=== PATIENT | male | born 1980 | race Caucasian/White ===

== ENCOUNTER 2021-01-27 10:44 | Emergency (ER) | payer OTHER ==
[2021-01-27] MEDS ORDERED: Diphtheria,Pertussis(Acell),Tetanus Vaccine 0.5 ML Syringe IM ONE (11:16)
--- NOTE | 2021-01-27 12:00 | CR ---
Right hand: 4 views of the right hand were obtained. Comparison: No prior hand exam is available. Joint spaces are preserved. No fracture, dislocation or other bony abnormality is seen. Impression: 1. No bony abnormality is identified on right hand exam. Diagnostic code #1
[2021-01-27] MEDS ORDERED: Lidocaine 1% 10 ML MDV INJECT ONE (12:01)
[2021-01-27] MEDS ORDERED: Amoxicillin/Clavulanate K 875-125 MG Tab PO ONE (12:01)
--- NOTE | 2021-01-27 12:53 | EDM.PDOC ---
ED HPI GENERAL MEDICAL PROBLEM - General Chief Complaint: Laceration Stated Complaint: RT THUMB LAC Time Seen by Provider: 01/27/21 11:01 Source of Information: Reports: Patient, RN Notes Reviewed History Limitations: Reports: No Limitations - History of Present Illness INITIAL COMMENTS - FREE TEXT/NARRATIVE: Patient is a 40-year-old male presenting to the emergency department complains of lacerations to his right hand. Reports that he was working with a router when his hand hit the blade. He is unsure when his last tetanus vaccination was. Complains of numbness to the thumb and lateral aspect of his hand. He is unable to extend his thumb. Right Finger-Index Pain Score (Numeric/FACES): 4 - Related Data Allergies Allergy/AdvReac Type Severity Reaction Status Date / Time No Known Allergies Allergy Verified 01/27/21 13:07 Home Meds: Home Meds Amoxicillin/Potassium Clav [Augmentin 875-125 Tablet] 1 each PO BID 7 Days #13 tablet 01/27/21 [Rx] Past Medical History Musculoskeletal History: Reports: Other (See Below) Other Musculoskeletal History: collar bone and tricep issues ED ROS GENERAL - Review of Systems Review Of Systems: Comprehensive ROS is negative, except as noted in HPI. ED EXAM, SKIN/RASH Exam: See Below Exam Limited By: No Limitations General Appearance: Alert, WD/WN, No Apparent Distress, Anxious Respiratory/Chest: No Respiratory Distress, Lungs Clear, Normal Breath Sounds, No Accessory Muscle Use, Chest Non-Tender Cardiovascular: Normal Peripheral Pulses, Regular Rate, Rhythm, No Edema, No Gallop, No JVD, No Murmur, No Rub Extremities: Other (3 cm skin avulsion to the medial aspect of the right thumb. Involves a small sliver of the nail. Overlying, nonviable tissue is essentially shredded. Small amount of active bleeding. 5 cm gaping laceration to the medial aspect of the right hand. Small amount of active bleeding. ) Neurological: Alert, Oriented, Normal Gait, No Motor/Sensory Deficits Psychiatric: Normal Affect, Normal Mood, Anxious ED SKIN PROCEDURES - Laceration/Wound Repair Right Lateral Hand Appearance: Subcutaneous, Clean Distal NVT: Other (Visibly severed extensor tendon overlying the MCP joint) Anesthetic Type: Local Local Anesthesia - Lidocaine (Xylocaine): 1% Plain Local Anesthetic Volume: 3cc Skin Prep: Chlorhexidine (Hibiciens), Saline, Sterile Drape Exploration/Debridement/Repair: Wound Explored, In a Bloodless Field, Explored to Base, Minimal Debridement Lac/Wound length In cm: 5 Suture Size: 4-0 # of Sutures: 9 Suture Type: Nylon, Interrupted Sterile Dressing Applied: Provider Tetanus Status Addressed: Yes Complications: No Course - Vital Signs Last Recorded V/S: Last Vital Signs Temp 97.0 F 01/27/21 10:44 Pulse 66 01/27/21 10:44 Resp 18 01/27/21 10:44 BP 114/79 01/27/21 10:44 Pulse Ox 100 01/27/21 10:44 - Orders/Labs/Meds Meds: Medications Discontinued Medications Generic Name Dose Route Start Last Admin Trade Name Freq PRN Reason Stop Dose Admin Amoxicillin/Clavulanate Potassium 1 tab 01/27/21 12:01 01/27/21 12:21 Amoxicillin/Clavulanate K 875-125 Mg Tab PO 01/27/21 12:02 1 tab ONETIME ONE Administration Diphtheria/Tetanus/Acell Pertussis 0.5 ml 01/27/21 11:16 01/27/21 11:45 Diphtheria,Pertussis(Acell),Tetanus Vaccine 0.5 Ml Syringe IM 01/27/21 11:17 0.5 ml .ONCE ONE Administration Lidocaine HCl 10 ml 01/27/21 12:01 01/27/21 12:21 Lidocaine 1% 10 Ml Mdv INJECT 01/27/21 12:02 10 ml ONETIME ONE Administration - Re-Assessments/Exams Free Text/Narrative Re-Assessment/Exam: Patient is a 40-year-old male presenting to the emergency department with complaints of laceration to his right hand. On exam, he has a proximate 3 cm skin avulsion to the medial aspect of the distal right thumb with overlying nonviable shredded tissue. Involving a small portion of the medial nail bed. Patient also has a proximal a 5 cm gaping laceration to the lateral aspect of the right hand which overlie the area of his first extensor tendon. He is unable to extend his thumb, therefore there is concern that he may have severed this. I have ordered x-rays and tetanus vaccination. I will consult with hand specialist once x-rays are completed. Hand is soaking in solution of sterile saline and CHG soap. 01/27/[address] Griffith[facility] He is actually in [place] today to see patients. He recommend that we clean the wounds well. Recommended debridement of nonviable tissue from the avulsed area on the thumb as well as closure of the laceration to the lateral aspect of the hand with sutures. He will see the patient in the [facility] once he is done in the ER. I have ordered lidocaine and Augmentin. 01/27/21 13:06 Skin avulsion on the distal aspect of the right thumb was debrided of nonviable tissue. Area was covered in Vaseline gauze and wrapped. There was still a small amount of bleeding, however this was controlled once the dressing is in place. 5 centimeter laceration to the hand was closed with 9 sutures. Small amount of nonviable tissue was debrided from the wound margins. I was able to visualize what appeared to be the severed extensor tendon overlying the MCP joint on exploration of the wound. Called and updated Dr. Griffith's nurse of these findings. Wound was covered with Vaseline infused gauze and wrapped in gauze and Coban. Patient received his tetanus vaccination first dose of Augmentin. Subsequent doses have been sent to [facility]. He will go directly to [facility] to see Dr. Griffith once discharged from the ER. Departure - Departure Time of Disposition: 12:49 Disposition: Home, Self-Care 01 Condition: Good Clinical Impression: Laceration - Discharge Information *PRESCRIPTION DRUG MONITORING PROGRAM REVIEWED*: No *COPY OF PRESCRIPTION DRUG MONITORING REPORT IN PATIENT EMANUEL: No Prescriptions: Amoxicillin/Potassium Clav [Augmentin 875-125 Tablet] 1 each PO BID 7 Days #13 tablet Instructions: Laceration Care, Adult Referrals: King Griffith MD [Ordering Only Provider] - Forms: ED Department Discharge Additional Instructions: Keep wound covered. [facility] on [facility] 2nd floor of the medical office building to s sam Abel immediately after leaving the ER. Follow treatment and follow- up recommendation from Dr. Abel Take Augmentin as prescribed. First dose was given in ER. Return to ER as needed. Sepsis Event Note (ED) - Focused Exam Vital Signs: Vital Signs Temp Pulse Resp BP Pulse Ox 01/27/21 10:44 97.0 F 66 18 114/79 100
[2021-01-27 13:07] VITALS: BP 114/79; PULSE 66
== END 2021-01-27 13:43 | disposition home or self-care (01) ==
LOC: JD.ED 10:44
DX: S61.011A Laceration without foreign body of right thumb without damage to nail, initial encounter (principal); Z23 Encounter for immunization; W22.09XA Striking against other stationary object, initial encounter; Y99.0 Civilian activity done for income or pay
CPT/HCPCS: 12002; 73130; 90471; 90715; 99283; A9270